=== PATIENT | female | born 1980 ===

== ENCOUNTER 2021-04-01 15:37 | Emergency (ER) | payer MEDICAID, OTHER ==
[~2021-04-01] VITALS: Ht 160 cm; Wt 63.5 kg
[2021-04-01 16:15] LABS: Basophils # (auto) 0.1 10 ^3/uL (0-0.2); Eosinophils # (auto) 0.3 10 ^3/uL (0-0.8); Eosinophils % (auto) 2.1 % (0.0-7.0); Mean Corpuscular Hgb Conc. 35.1 g/dL (32.0-36.0); Mean Corpuscular Volume 99.6 fL (80.0-100.0); Monocytes # (auto) 0.8 10 ^3/uL (0-1.3); Monocytes % (auto) 6.3 % (0.0-12.0)
[2021-04-01 16:16] LABS: Basophils % (auto) 0.9 % (0.0-2.0); Hematocrit 36.7 % (36.0-46.0); Hemoglobin 12.9 g/dL (12.2-16.2); Lymphocytes # (auto) 1.6 10 ^3/uL (0.4-5.4); Lymphocytes % (auto) 12.7 % (10.0-50.0); Neutrophils # (auto) 9.9 10 ^3/uL (1.6-8.6); Red Blood Cells 3.69 10^6/uL (4.0-5.20); Red Cell Distribution Width 12.6 % (11.8-14.3); White Blood Cell 12.6 10^3/uL (4.4-10.8)
[2021-04-01 16:32] LABS: Albumin 3.3 g/dL (3.4-5.0); BUN/Creatinine Ratio 16.7; Calcium 9.3 mg/dL (8.5-10.1); Potassium 3.9 mmol/L (3.5-5.1)
[2021-04-01 16:35] LABS: Bilirubin, Total 0.2 mg/dL (0.2-1.0)
[2021-04-01 18:41] LABS: Urine Bacteria FEW /hpf (None Seen); Urine Blood Negative /uL (Negative); Urine Hyaline Cast FEW /lpf (0 - 2); Urine Mucus FEW (None Seen); Urine WBC 9 /hpf (0 - 5)
[2021-04-01] MEDS ORDERED: ONDANSETRON HCL 4 MG/2 ML VIAL IV ONE (23:00)
[2021-04-01] MEDS ORDERED: HYDROcodone-ACET 5/325MG TAB PO ONE (23:00)
[2021-04-01] MEDS ORDERED: SUMAtriptan SUCCINATE 6 MG/0.5 ML VL SC ONE (23:00)
[2021-04-01] MEDS ORDERED: IOHEXOL 300 MG/ML 100ML BOTTLE IJ ONE (23:21)
[2021-04-02 02:49] VITALS: BP 115/70
== END 2021-04-02 04:20 | disposition home or self-care (01) ==
LOC: ER 15:37 → EDBD 15:37 → ER 04-02 04:20
DX: N39.0 Urinary tract infection, site not specified (principal); G89.4 Chronic pain syndrome; F32.9 Major depressive disorder, single episode, unspecified; F12.10 Cannabis abuse, uncomplicated
CPT/HCPCS: 36415; 70450; 72125; 74177; 80053; 81001; 81025; 85025; 85049; 99285; Q9967; J2405